=== PATIENT | male | born 1990 | race Two or more races ===

== ENCOUNTER 2016-12-19 15:21 | Emergency (ER) | payer OTHER ==
[2016-12-19] MEDS ORDERED: HYDROcodone/APAP 5/325 MG 1 TAB TABLET PO ONE (15:56)
[2016-12-19] MEDS ORDERED: KETOROLAC TROMETHAMINE 30 MG/ML VIAL ONE (15:56)
[2016-12-19] MEDS ORDERED: ONDANSETRON ODT 4 MG TAB.RAPDIS ONE (15:56)
[2016-12-19] MEDS ORDERED: BUPIVACAINE HCL/PF 0.5% 30 ML VIAL ONE ×2 (16:07→16:18)
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
[2016-12-19] MEDS ORDERED: CLINDAMYCIN HCL 150 MG CAPSULE PO ONE (16:44)
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
== END 2016-12-19 17:32 | disposition home or self-care (01) ==
LOC: EDBD 15:21 → ER 15:21
DX: S61.412A Laceration without foreign body of left hand, initial encounter (principal); S20.312A Abrasion of left front wall of thorax, initial encounter; S20.412A Abrasion of left back wall of thorax, initial encounter; S90.511A Abrasion, right ankle, initial encounter; S90.01XA Contusion of right ankle, initial encounter; S79.912A Unspecified injury of left hip, initial encounter; V86.59XA Driver of other special all-terrain or other off-road motor vehicle injured in nontraffic accident, initial encounter; Y92.838 Other recreation area as the place of occurrence of the external cause
CPT/HCPCS: 12041; 71020; 96372; 99284; J1885